=== PATIENT | female | born 1995 | race Two or more races ===

== ENCOUNTER 2017-09-21 04:06 | Emergency (ER) | payer MEDICAID ==
[~2017-09-21] VITALS: Ht 157.5 cm; Wt 70.0 kg
[2017-09-21] MEDS ORDERED: SODIUM CHLORIDE 0.9% 1,000 ML IV ONE (04:44)
[2017-09-21] MEDS ORDERED: ONDANSETRON 2MG/ML, 2ML IVPush ONE (05:00)
[2017-09-21] MEDS ORDERED: FAMOTIDINE 20 MG/2 ML IVP ONE (05:00)
[2017-09-21] MEDS ORDERED: MORPHINE SULFATE 4 MG/ML, 1ML IVPush PRN (05:00)
[2017-09-21] MEDS ORDERED: ONDANSETRON 2MG/ML, 2ML ONE (05:00)
[2017-09-21] MEDS ORDERED: SODIUM CHLORIDE 0.9% 1,000ML IVBOLUS ONE (05:00)
[2017-09-21] MEDS ORDERED: FAMOTIDINE 20 MG/2 ML ONE (05:00)
[2017-09-21] MEDS ORDERED: MORPHINE SULFATE 4 MG/ML, 1ML ONE (05:00)
[2017-09-21 05:12] LABS: BASOPHILS # (AUTO) 0.04 x10^3/uL (0-0.3); BASOPHILS % (AUTO) 0 % (0-1); EOSINOPHILS # (AUTO) 0.17 x10^3/uL (0-0.8); EOSINOPHILS % (AUTO) 2 % (1-7); LYMPHOCYTES # (AUTO) 3.51 x10^3/uL (1-6.1); LYMPHOCYTES % (AUTO) 31 % (22-44); MD NO; MEAN CORPUSCULAR HEMOGLOBIN 24.4 pg (27.0-34.8); MEAN CORPUSCULAR HGB CONC 32.5 g/dL (32.4-35.8); MEAN CORPUSCULAR VOLUME 75.3 fL (80-100); MEAN PLATELET VOLUME 11.6 fL (7.4-10.4); MONOCYTES # (AUTO) 0.69 x10^3/uL (0-1.4); MONOCYTES % (AUTO) 6 % (2-9); NEUTROPHILS # (AUTO) 6.91 x10^3/uL (1.8-8.0); NEUTROPHILS % (AUTO) 61 % (42-75); PLATELET COUNT 261 x10^3/uL (130-400); RED BLOOD COUNT 4.35 x10^6/uL (3.82-5.3); RED CELL DISTRIBUTION WIDTH 19.7 % (9.6-15.2)
[2017-09-21 05:20] LABS: CHLORIDE 106 mmol/L (98-107)
[2017-09-21 05:28] LABS: MICROSCOPIC AUTO
[2017-09-21 05:29] LABS: CULTURE INDICATED? YES
[2017-09-21 05:29] LABS: ALANINE AMINOTRANSFERASE 60 U/L (12-78); ALBUMIN 3.5 g/dL (3.4-5.0); ALKALINE PHOSPHATASE 104 U/L (45-117); ANION GAP 10 mmol/L (5-15); BILIRUBIN,TOTAL 0.5 mg/dL (0.2-1.0); CALCIUM 8.6 mg/dL (8.5-10.1); CREATININE 0.67 mg/dL (0.55-1.02); TOTAL PROTEIN 7.7 g/dL (6.4-8.2)
[2017-09-21] MEDS ORDERED: PHENAZOPYRIDINE 200 MG TABLET ONE (06:28)
[2017-09-21 06:47] VITALS: BP 105/70
== END 2017-09-21 07:00 | disposition home or self-care (01) ==
LOC: ED 06:00
DX: K80.70 Calculus of gallbladder and bile duct without cholecystitis without obstruction (principal)
CPT/HCPCS: 36415; 76700; 80053; 81001; 83690; 84703; 85025; 87086; 96361; 96374; 96375; 99285; J2405; J7030; S0028

== ENCOUNTER 2019-05-07 22:43 | Emergency (ER) | payer MEDICAID ==
[~2019-05-07] VITALS: Ht 160 cm; Wt 74.3 kg
[2019-05-08 03:40] VITALS: BP 106/58
== END 2019-05-08 03:42 | disposition home or self-care (01) ==
LOC: ED 23:03
DX: Z32.01 Encounter for pregnancy test, result positive (principal); R10.12 Left upper quadrant pain; R07.89 Other chest pain; Z90.49 Acquired absence of other specified parts of digestive tract
CPT/HCPCS: 36415; 71045; 71275; 80048; 82040; 83880; 84484; 84702; 85025; 85379; 93005; 96374; 99284; J2405; J7030; Q9967; 84703